=== PATIENT | female | born 1985 | race Two or more races ===

== ENCOUNTER 2024-02-28 09:28 | Outpatient (CLI) | payer OTHER | END 2024-02-28 09:30 | disposition home or self-care (01) | LOC: PRENATAL 09:28 | PROVIDERS: ATTEND Obstetrics & Gynecology Maternal & Fetal Medicine | DX: O36.80X0 Pregnancy with inconclusive fetal viability, not applicable or unspecified (principal); Z36.82 Encounter for antenatal screening for nuchal translucency; O34.40 Maternal care for other abnormalities of cervix, unspecified trimester; O99.891 Other specified diseases and conditions complicating pregnancy; Z36.9 Encounter for antenatal screening, unspecified; Z14.8 Genetic carrier of other disease; O26.859 Spotting complicating pregnancy, unspecified trimester; Z3A.12 12 weeks gestation of pregnancy ==

== ENCOUNTER 2024-04-20 13:20 | Outpatient (CLI) | payer OTHER | END 2024-04-20 13:21 | disposition home or self-care (01) | LOC: PRENATAL 13:20 | PROVIDERS: ATTEND Obstetrics & Gynecology Maternal & Fetal Medicine | DX: O44.00 Complete placenta previa NOS or without hemorrhage, unspecified trimester (principal); O34.40 Maternal care for other abnormalities of cervix, unspecified trimester; O09.519 Supervision of elderly primigravida, unspecified trimester; Z3A.18 18 weeks gestation of pregnancy ==

== ENCOUNTER 2024-06-21 09:00 | Outpatient (CLI) | payer OTHER | END 2024-06-21 09:15 | disposition home or self-care (01) | LOC: PRENATAL 09:00 | PROVIDERS: ATTEND Obstetrics & Gynecology Maternal & Fetal Medicine | DX: O26.849 Uterine size-date discrepancy, unspecified trimester (principal); O44.00 Complete placenta previa NOS or without hemorrhage, unspecified trimester; O34.40 Maternal care for other abnormalities of cervix, unspecified trimester; O09.519 Supervision of elderly primigravida, unspecified trimester; Z3A.28 28 weeks gestation of pregnancy ==

== ENCOUNTER 2024-07-30 10:52 | Outpatient (CLI) | payer OTHER ==
[~2024-07-30] VITALS: Ht 157.5 cm; Wt 67.6 kg
[2024-07-30 09:47] VITALS: BP 102/70
[2024-07-30] MEDS ORDERED: IRON240 MG PO (11:11)
[2024-07-30] MEDS ORDERED: FUSION PLUS CA1 EACH PO (11:13)
[2024-07-30] MEDS ORDERED: RINGERS SOLUTION,LACTATED 1,000 ML IV SCH (11:15)
[2024-07-30 12:03] LABS: HEMATOCRIT 34.5 % (36.0-45.00); HEMOGLOBIN 11.8 g/dL (12.0-15.00); MEAN CELL VOLUME 94.9 fL (80.00-100.00); MEAN CORPUSCULAR HEMOGLOBIN 32.5 pg (27.00-32.0); MEAN CORPUSCULAR HGB CONC 34.3 g/dl (32.0-36.0); PLATELET COUNT 208 K/uL (150-450); RED BLOOD COUNT 3.63 M/uL (4.00-6.00); RED CELL DISTRIBUTION WIDTH 13.8 % (11.5-14.5)
[2024-07-30 12:58] LABS: ALBUMIN 2.4 gm/dL (3.4-5.0); BILIRUBIN TOTAL 0.32 mg/dL (0.3-1.2); CALCIUM 8.6 mg/dL (8.5-10.1); CREATININE SERUM 0.43 mg/dL (0.55-1.02); GFR 165.22; GLOBULINA 3.4 G/DL (2.4-3.5); POTASSIUM 4.35 mEq/L (3.5-5.1); TOTAL PROTEIN 5.8 gm/dL (6.4-8.2)
[2024-07-30 15:20] VITALS: BP 108/69
[2024-07-30 18:59] VITALS: BP 108/69
== END 2024-07-30 19:07 | disposition home or self-care (01) ==
LOC: OBS/DEL 10:52
PROVIDERS: ATTEND Student in an Organized Health Care Education/Training Program
DX: O26.893 Other specified pregnancy related conditions, third trimester (principal); O26.849 Uterine size-date discrepancy, unspecified trimester; O36.8199 Decreased fetal movements, unspecified trimester, other fetus; O34.40 Maternal care for other abnormalities of cervix, unspecified trimester; O09.519 Supervision of elderly primigravida, unspecified trimester; R42 Dizziness and giddiness; Z3A.34 34 weeks gestation of pregnancy

== ENCOUNTER 2024-09-03 13:30 | Inpatient (IN) | payer OTHER ==
[~2024-09-03] VITALS: Ht 154.9 cm; Wt 70.3 kg
[~2024-09-03 13:30] MED LIST: FUSION PLUS CA1 EACH PO; IRON240 MG PO
[2024-09-10 18:12] VITALS: BP 128/78
[2024-09-10] MEDS ORDERED: VALACYCLOVIR500 MG PO (18:43)
[2024-09-10] MEDS ORDERED: PRENATAL TABLE1 EAC1 PO (18:44)
[2024-09-10] MEDS ORDERED: RINGERS SOLUTION,LACTATED 1,000 ML IV SCH (18:45)
[2024-09-10 18:49] LABS: HEMATOCRIT 35.9 % (36.0-45.00); HEMOGLOBIN 12.4 g/dL (12.0-15.00); MEAN CELL VOLUME 95.4 fL (80.00-100.00); MEAN CORPUSCULAR HEMOGLOBIN 33.1 pg (27.00-32.0); MEAN CORPUSCULAR HGB CONC 34.7 g/dl (32.0-36.0); PLATELET COUNT 190 K/uL (150-450); RED BLOOD COUNT 3.76 M/uL (4.00-6.00); RED CELL DISTRIBUTION WIDTH 14.2 % (11.5-14.5)
[2024-09-10 19:06] LABS: INR 0.97; PARTIAL THROMBOPLASTIN TIME 25.6 SECONDS (22.0-34.0); PROTHROMBIN TIME 10.6 SECONDS (9.0-11.5)
[2024-09-10 19:10] LABS: ALBUMIN 2.4 gm/dL (3.4-5.0); BILIRUBIN TOTAL 0.24 mg/dL (0.3-1.2); CALCIUM 8.7 mg/dL (8.5-10.1); CREATININE SERUM 0.51 mg/dL (0.55-1.02); GFR 134.96; GLOBULINA 3.4 G/DL (2.4-3.5); POTASSIUM 3.56 mEq/L (3.5-5.1); TOTAL PROTEIN 5.8 gm/dL (6.4-8.2)
[2024-09-10] MEDS ORDERED: MISOPROSTOL 25 MCG TABLET ONE (19:26)
[2024-09-10] MEDS ORDERED: MISOPROSTOL 25 MCG TABLET PO ONE (19:30)
[2024-09-10] MEDS ORDERED: MISOPROSTOL 25 MCG TABLET VAG ONE (23:30)
[2024-09-10 23:37] VITALS: BP 124/61
[2024-09-11 04:04] VITALS: BP 120/71
[2024-09-11 07:25] VITALS: BP 121/74
[2024-09-11] MEDS ORDERED: OXYTOCIN 500 ML IV SCH (08:15)
[2024-09-11] MEDS ORDERED: OXYTOCIN 20 UNITS/500ML RL PIGGYBAG IV ONE (08:38)
[2024-09-11 11:50] VITALS: BP 123/99
[2024-09-11 15:15] VITALS: BP 117/77
[2024-09-11 19:10] VITALS: BP 118/67
[2024-09-11] MEDS ORDERED: PROMETHAZINE HCL 25 MG/ML AMPUL IV ONE (20:30)
[2024-09-11] MEDS ORDERED: ONDANSETRON HCL 2 MG/ML VIAL IV SCH (21:00)
[2024-09-11] MEDS ORDERED: GENTAMICIN SULFATE 40 MG/ML VIAL IV ONE (23:15)
[2024-09-11] MEDS ORDERED: AMPICILLIN SODIUM 2,000 MG VIAL ONE (23:16)
[2024-09-11] MEDS ORDERED: ERYTHROMYCIN BASE OPHT 1GM EACH TUBE OP ONE (23:22)
[2024-09-11] MEDS ORDERED: OXYTOCIN 10 UNITS/ML VIAL ONE (23:22)
[2024-09-11 23:37] VITALS: BP 134/70
[2024-09-12] MEDS ORDERED: AMPICILLIN SODIUM 1,000 MG VIAL IV SCH
[2024-09-12] MEDS ORDERED: KETOROLAC TROMETHAMINE 15 MG VIAL IV SCH (01:10)
[2024-09-12] MEDS ORDERED: RINGERS SOLUTION,LACTATED 1,000 ML IV SCH (01:15)
[2024-09-12] MEDS ORDERED: CHLORHEXIDINE GLUCONATE 120 ML BOTTLE TP SCH (01:15)
[2024-09-12] MEDS ORDERED: OXYTOCIN 1,000 ML IV SCH (01:15)
[2024-09-12] MEDS ORDERED: OxyCODONE HCL 5 MG TABLET (ROXICODONE) PO PRN ×2 (01:15→11:00)
[2024-09-12] MEDS ORDERED: MEPERIDINE HCL 25 MG/ML AMPUL IV ONE (01:40)
[2024-09-12] MEDS ORDERED: KETOROLAC TROMETHAMINE 30 MG VIAL ONE (02:57)
[2024-09-12] MEDS ORDERED: OXYTOCIN 10 UNITS/ML VIAL ONE (03:37)
[2024-09-12 04:21] LABS: COVID-19 AG NEGATIVE (NEGATIVE)
[2024-09-12 04:23] LABS: INFLUENZA A AG NEGATIVE (NEGATIVE)
[2024-09-12 04:36] VITALS: BP 138/72
[2024-09-12] MEDS ORDERED: KETOROLAC TROMETHAMINE 30 MG VIAL IV SCH (08:00)
[2024-09-12 08:36] VITALS: BP 111/73; O2SAT 99
[2024-09-12] MEDS ORDERED: DOCUSATE SODIUM 100MG CAP PO SCH (09:00)
[2024-09-12 09:39] LABS: HEMATOCRIT 38.3 % (36.0-45.00); HEMOGLOBIN 12.6 g/dL (12.0-15.00); MEAN CELL VOLUME 96.5 fL (80.00-100.00); MEAN CORPUSCULAR HEMOGLOBIN 31.8 pg (27.00-32.0); MEAN CORPUSCULAR HGB CONC 32.9 g/dl (32.0-36.0); PLATELET COUNT 170 K/uL (150-450); RED BLOOD COUNT 3.97 M/uL (4.00-6.00); RED CELL DISTRIBUTION WIDTH 14.1 % (11.5-14.5)
[2024-09-12] MEDS ORDERED: CLINDAMYCIN PHOSPHATE 150 MG/ML (900mg) IV NR (10:30)
[2024-09-12] MEDS ORDERED: ACETAMINOPHEN WITH CODEINE 1 UDTAB TABLET PO PRN (10:30)
[2024-09-12] MEDS ORDERED: ACETAMINOPHEN 500 MG GEL..CAP PO PRN (11:00)
[2024-09-12 16:00] VITALS: BP 111/72
[2024-09-13] VITALS: BP 116/70
[2024-09-13 07:00] LABS: HEMATOCRIT 29.9 % (36.0-45.00); HEMOGLOBIN 10.2 g/dL (12.0-15.00); MEAN CORPUSCULAR HEMOGLOBIN 33.1 pg (27.00-32.0); MEAN CORPUSCULAR HGB CONC 34.1 g/dl (32.0-36.0); PLATELET COUNT 142 K/uL (150-450); RED BLOOD COUNT 3.08 M/uL (4.00-6.00); RED CELL DISTRIBUTION WIDTH 14.9 % (11.5-14.5)
[2024-09-13 08:54] VITALS: BP 123/76
[2024-09-13] MEDS ORDERED: IBUprofen 800 MG TABLET PO PRN (11:45)
[2024-09-13 16:14] VITALS: BP 131/88
[2024-09-14 01:00] VITALS: BP 114/67
[2024-09-14 08:00] VITALS: BP 135/79
[2024-09-14] MEDS ORDERED: IBUPROFEN800 MG PO (13:28)
[2024-09-14] MEDS ORDERED: COLACE100 MG PO (13:28)
[2024-09-14] MEDS ORDERED: OXYCODONE HCL5 MG PO (13:28)
[2024-09-14] MEDS ORDERED: PAIN RELIEVER500 M2 PO (13:28)
[2024-09-14 13:41] LABS: HEMATOCRIT 32.7 % (36.0-45.00); HEMOGLOBIN 10.9 g/dL (12.0-15.00); MEAN CELL VOLUME 96.9 fL (80.00-100.00); MEAN CORPUSCULAR HEMOGLOBIN 32.5 pg (27.00-32.0); MEAN CORPUSCULAR HGB CONC 33.5 g/dl (32.0-36.0); PLATELET COUNT 185 K/uL (150-450); RED BLOOD COUNT 3.37 M/uL (4.00-6.00); RED CELL DISTRIBUTION WIDTH 14.3 % (11.5-14.5)
== END 2024-09-14 14:36 | disposition home or self-care (01) | DRG 786 ==
LOC: LDR 09-10 17:10 → OB/GYN 09-11 13:30
PROVIDERS: Student in an Organized Health Care Education/Training Program; ADMIT General Practice; ATTEND General Practice
PROC: 3E0P7VZ Introduction of Hormone into Female Reproductive, Via Natural or Artificial Opening (ICD-10-PCS; 2024-09-10)
PROC: 4A1HXCZ Monitoring of Products of Conception, Cardiac Rate, External Approach (ICD-10-PCS; 2024-09-10)
PROC: 3E0DXGC Introduction of Other Therapeutic Substance into Mouth and Pharynx, External Approach (ICD-10-PCS; 2024-09-10)
PROC: 3E033VJ Introduction of Other Hormone into Peripheral Vein, Percutaneous Approach (ICD-10-PCS; 2024-09-11)
PROC: 10D00Z1 Extraction of Products of Conception, Low, Open Approach (ICD-10-PCS; principal; 2024-09-12)
DX: O75.2 Pyrexia during labor, not elsewhere classified (principal); O41.1230 Chorioamnionitis, third trimester, not applicable or unspecified; O36.8330 Maternal care for abnormalities of the fetal heart rate or rhythm, third trimester, not applicable or unspecified; Z3A.39 39 weeks gestation of pregnancy; Z37.0 Single live birth